=== PATIENT | female | born 1945 | race Caucasian/White ===

== ENCOUNTER 2017-05-19 06:16 | Inpatient (IN) | payer OTHER ==
[~2017-05-19] VITALS: Ht 158.8 cm; Wt 95.1 kg
[~2017-05-19 06:16] MED LIST: ASCORBIC ACID500 M3 PO; ASPIRIN81 M1 PO; AZITHROMYCIN500 MG PO; Ascorbic Acid,Ester- PO; Aspirin E.C. PO; BENADRYL25 MG PO; BREO ELLIPTA I1 EACH IH; CALCIUM 250+D1 EACH PO; CARDIZEM CD120 MG PO; CARDIZEM CD180 MG PO; COMPLETE SENIO1 EACH PO; COUMADIN2.5 MG PO; COUMADIN5 MG PO; CYANOCOBALAM1000 MCG PO; CYMBALTA60 MG PO; Colace PO; Coumadin,Jantoven PO; DULOXETINE HCL60 MG PO; EPIPEN ADU0.3 MG/0.3 IM; FAMOTIDINE20 MG PO; FEOSOL325 MG PO; FISH OIL 1,0001 EAC7 PO; FISH OIL 1,2001 EAC4 PO; FUROSEMIDE40 MG PO; Feosol PO; HYDROCODONE-CH473 ML PO; HYOSCYAMINE0.375 MG PO; LANSOPRAZOLE30 MG PO; LEVOFLOXACIN750 MG PO; LOW DOSE ASPIRI81 M1 PO; Lovenox SC; METOPROLOL SUC100 MG PO; MUCINEX1200 MG PO; MULTI-VITAMIN1 EAC4 PO; POLYMYXIN B-TMP10 ML RIGHT EYE; PRAVASTATIN SOD80 MG PO; PREDNISONE10 MG PO; PREDNISONE5 MG PO; PREVACID30 MG PO; Prevacid PO; SIMVASTATIN40 MG PO; ST. JOSEPH ASPI81 MG PO; SULFAZINE500 MG PO; SYNTHROID25 MCG PO; Senokot S,Pericolace PO; TOPROL XL100 MG PO; TOPROL XL50 MG PO; Toprol XL PO; VENTOLIN HFA18 GM IH; VITAMIN D31000 UNI2 PO; Vicodin,Norco 5/325 PO; WARFARIN SODIUM2 MG PO; WARFARIN SODIUM5 MG PO; Zocor PO; celeXA PO; citalopram; metoprolol succinate
[2017-05-19 07:34] LABS: EOSINOPHIL (%) 0.8 % (0-5); EOSINOPHIL COUNT 0.2 K/uL (0-0.3); HEMATOCRIT 44.4 % (36.0-46.0); IMMATURE GRANULOCYTE (%) 1.7 % (0.0-0.7); IMMATURE GRANULOCYTE COUNT 0.3 K/uL; INSTRUMENT ABS NEUTROPHIL CT 14.6 K/uL; MCH 28.5 PG (29.0-34.0); MCHC 32.7 G/DL (30.0-36.0); MCV 87.4 FL (83-99); MEAN PLAT.VOLUME 8.3 uM^3 (9.5-12.4); MONOCYTE (%) 6.8 % (3-12); MONOCYTE COUNT 1.3 K/uL (0-0.8); NEUTROPHIL COUNT 14.6 K/uL (1.8-6.4); PLATELET COUNT 513 K/uL (156-360); RBC DIS.WIDTH-CV 15.7 % (11.8-14.6); RBC DIS.WIDTH-SD 50.5 % (39-53); RED BLOOD COUNT 5.08 M/uL (3.80-5.20); WHITE BLOOD COUNT 19.5 K/uL (4.1-10.2)
[2017-05-19 07:41] LABS: INTER. NORMALIZED RATIO 2.1; PROTHROMBIN TIME 23.9 SEC (10.2-12.9)
[2017-05-19 07:44] LABS: PTT 31.1 SEC (25-37)
[2017-05-19 07:53] LABS: CHLORIDE 107 mEq/L (99-109); POTASSIUM 3.8 mEq/L (3.7-5.4); SODIUM 140 mEq/L (136-147)
[2017-05-19 07:55] LABS: GLUCOSE 138 mg/dL (70-99); TROP-I INTERPRETATION NEGATIVE; TROPONIN-I 0.13 ng/mL (0.0-0.30)
[2017-05-19 07:56] LABS: ANION GAP 11 MEQ/L (2-14)
[2017-05-19 07:59] LABS: GFR ESTIMATE (CALCULATED) 36 mL/min/; UREA NITROGEN (BUN) 45 mg/dL (9-23)
[2017-05-19 08:12] LABS: INFLUENZA A VIRAL ANTIGEN NEGATIVE; INFLUENZA B VIRAL ANTIGEN NEGATIVE
[2017-05-19] MEDS ORDERED: ZOFRAN4 MG PO (09:43)
[2017-05-19] MEDS ORDERED: NITROSTAT0.4 MG SL (10:56)
[2017-05-19] MEDS ORDERED: TRAMADOL HCL50 MG PO (10:57)
[2017-05-19] MEDS ORDERED: MIRALAX17 GM PO (10:58)
[2017-05-19] MEDS ORDERED: EPIPEN ADU0.3 MG/0.3 IM (11:01)
[2017-05-19] MEDS ORDERED: DOXYCYCLINE MO100 M1 PO (11:05)
[2017-05-19] MEDS ORDERED: BENZONATATE100 MG PO (11:05)
[2017-05-19 12:25] VITALS: BP 118/68
[2017-05-19 14:11] LABS: TROP-I INTERPRETATION NEGATIVE; TROPONIN-I 0.11 ng/mL (0.0-0.30)
[2017-05-19 15:14] VITALS: BP 127/59
[2017-05-19 20:33] VITALS: BP 120/65
[2017-05-19 20:33] LABS: TROP-I INTERPRETATION NEGATIVE
[2017-05-20] VITALS (7 sets, daily range): BP systolic 98–156; BP diastolic 56–72
[2017-05-20 06:07] LABS: HEMATOCRIT 38.5 % (36.0-46.0); MCHC 31.4 G/DL (30.0-36.0); MEAN PLAT.VOLUME 8.7 uM^3 (9.5-12.4); PLATELET COUNT 416 K/uL (156-360); RBC DIS.WIDTH-SD 54.4 % (39-53); RED BLOOD COUNT 4.17 M/uL (3.80-5.20); WHITE BLOOD COUNT 10.3 K/uL (4.1-10.2)
[2017-05-20 06:08] LABS: MCV 92.3 FL (83-99)
[2017-05-20 06:26] LABS: ANION GAP 8 MEQ/L (2-14); CHLORIDE 107 MEQ/L (99-109); GFR ESTIMATE (CALCULATED) 47 mL/min/; GLUCOSE 128 mg/dL (70-99); POTASSIUM 4.4 MEQ/L (3.7-5.4); SAMPLE HEMOLYSIS CHECK 0; SAMPLE ICTERIC CHECK 0; SAMPLE LIPEMIA CHECK 0; SODIUM 138 MEQ/L (136-147); UREA NITROGEN (BUN) 30 mg/dL (9-23)
[2017-05-20 06:29] LABS: INTER. NORMALIZED RATIO 2.5; PROTHROMBIN TIME 28.2 SEC (10.2-12.9)
[2017-05-21 04:07] VITALS: BP 144/72
[2017-05-21 06:31] LABS: PROTHROMBIN TIME 22.1 SEC (10.2-12.9)
[2017-05-21 07:13] LABS: HEMATOCRIT 42.7 % (36.0-46.0); MCH 28.6 PG (29.0-34.0); MCHC 30.9 G/DL (30.0-36.0); MCV 92.4 FL (83-99); MEAN PLAT.VOLUME 8.9 uM^3 (9.5-12.4); PLATELET COUNT 454 K/uL (156-360); RBC DIS.WIDTH-CV 15.6 % (11.8-14.6); RBC DIS.WIDTH-SD 53.2 % (39-53); RED BLOOD COUNT 4.62 M/uL (3.80-5.20); WHITE BLOOD COUNT 12.4 K/uL (4.1-10.2)
[2017-05-21 07:25] LABS: ANION GAP 8 MEQ/L (2-14); CHLORIDE 106 MEQ/L (99-109); GFR ESTIMATE (CALCULATED) 52 mL/min/; GLUCOSE 116 mg/dL (70-99); POTASSIUM 4.8 MEQ/L (3.7-5.4); SAMPLE HEMOLYSIS CHECK 0; SAMPLE ICTERIC CHECK 0; SAMPLE LIPEMIA CHECK 0; SODIUM 139 MEQ/L (136-147); UREA NITROGEN (BUN) 23 mg/dL (9-23)
[2017-05-21 07:31] VITALS: BP 119/65
[2017-05-21 10:43] VITALS: BP 116/59
[2017-05-21] MEDS ORDERED: MUCINEX600 MG PO (12:36)
[2017-05-21] MEDS ORDERED: ACIDOPHILUS LA1 EACH PO (12:37)
[2017-05-21] MEDS ORDERED: LEVAQUIN750 MG PO (12:38)
[2017-05-21 15:40] VITALS: BP 123/60
== END 2017-05-21 17:08 | disposition home or self-care (01) | DRG 202 ==
LOC: EME → EDBD 06:16 → EME 06:16 → EDOF 09:27 → 5WEST 09:27 → EDOF 09:27 → ENRESERV 09:32 → 5WEST 12:17 → ENRESERV 05-20 15:17 → CANRESERV 05-20 23:12 → ENRESERV 05-20 23:12 → 5WEST 05-21 17:08
PROVIDERS: Emergency Medicine; Internal Medicine; Nurse Practitioner Adult Health
DX: J20.9 Acute bronchitis, unspecified (principal); R00.0 Tachycardia, unspecified; Z96.653 Presence of artificial knee joint, bilateral; K50.90 Crohn's disease, unspecified, without complications; K21.9 Gastro-esophageal reflux disease without esophagitis; I48.91 Unspecified atrial fibrillation; I25.10 Atherosclerotic heart disease of native coronary artery without angina pectoris; I10 Essential (primary) hypertension; E78.5 Hyperlipidemia, unspecified; D68.51 Activated protein C resistance; K46.9 Unspecified abdominal hernia without obstruction or gangrene; F32.9 Major depressive disorder, single episode, unspecified; E86.0 Dehydration; D68.2 Hereditary deficiency of other clotting factors; I25.2 Old myocardial infarction; Z95.5 Presence of coronary angioplasty implant and graft; Z80.6 Family history of leukemia; Z79.82 Long term (current) use of aspirin; Z79.01 Long term (current) use of anticoagulants; E66.9 Obesity, unspecified; Z68.37 Body mass index [BMI] 37.0-37.9, adult
CPT/HCPCS: 71010; 80048; 84484; 85025; 85027; 85610; 85730; 87070; 87205; 87502; 87651 90; 93005; 94640; 94760; 99202; 99281; 99285; G0378; J1956; J2405; J7030; S0028

== ENCOUNTER 2017-08-18 11:53 | Inpatient (IN) | payer OTHER ==
[~2017-08-18] VITALS: Ht 160 cm; Wt 107.2 kg
[~2017-08-18 11:53] MED LIST changes: +ACIDOPHILUS LA1 EACH PO; +BENZONATATE100 MG PO; +DOXYCYCLINE MO100 M1 PO; +LEVAQUIN750 MG PO; +MIRALAX17 GM PO; +MUCINEX600 MG PO; +NITROSTAT0.4 MG SL; +TRAMADOL HCL50 MG PO; +ZOFRAN4 MG PO
[2017-08-18 13:26] LABS: HEMATOCRIT 36.7 % (36.0-46.0); MCH 29.3 PG (29.0-34.0); MCHC 32.7 G/DL (30.0-36.0); MCV 89.7 FL (83-99); PLATELET COUNT 363 K/uL (156-360); RBC DIS.WIDTH-CV 14.4 % (11.8-14.6); RBC DIS.WIDTH-SD 47.4 % (39-53); RED BLOOD COUNT 4.09 M/uL (3.80-5.20); WHITE BLOOD COUNT 14.6 K/uL (4.1-10.2)
[2017-08-18 13:40] LABS: CHLORIDE 104 mEq/L (99-109); POTASSIUM 4.1 mEq/L (3.7-5.4); SODIUM 136 mEq/L (136-147)
[2017-08-18 13:41] LABS: GLUCOSE 174 mg/dL (70-99)
[2017-08-18 13:45] LABS: CREATININE 0.9 mg/dL (0.6-1.3); GFR ESTIMATE (CALCULATED) > 59 mL/min/
[2017-08-18 13:46] LABS: UREA NITROGEN (BUN) 18 mg/dL (9-23)
[2017-08-18 15:45] LABS: INTER. NORMALIZED RATIO 2.8
[2017-08-18] MEDS ORDERED: PREDNISONE20 MG PO (16:06)
[2017-08-18] MEDS ORDERED: FUROSEMIDE40 MG PO (16:07)
[2017-08-18] MEDS ORDERED: CARDIZEM CD,CA180 MG PO (16:09)
[2017-08-18] MEDS ORDERED: METOPROLOL SUC100 MG PO (16:09)
[2017-08-18] MEDS ORDERED: K-DUR20 MEQ PO (16:09)
[2017-08-18] MEDS ORDERED: LEVOTHYROXINE25 MCG PO (16:10)
[2017-08-18] MEDS ORDERED: PROAIR HFA8.5 GM IH (16:11)
[2017-08-18 17:40] LABS: APPEARANCE CLEAR ((CLEAR)); BILIRUBIN NEGATIVE; BLOOD SMALL; COLOR YELLOW ((YELLOW)); GLUCOSE (STRIP) NEGATIVE; KETONES NEGATIVE; LEUKOCYTES MODERATE; NITRITE NEGATIVE; PROTEIN (STRIP) NEGATIVE; SPECIFIC GRAVITY 1.006 (1.000-1.030); UROBILINOGEN 0.2 MG/DL (0.2-1.0)
[2017-08-18 17:47] LABS: BACTERIA RARE /HPF; EPITHELIAL CELLS 1+ /HPF; MUCUS TRACE /LPF; RED BLOOD CELLS 0-5 /HPF (0-5); UCUL ADDED? NO; WHITE BLOOD CELLS 0-5 /HPF (0-5)
[2017-08-18 22:11] VITALS: BP 164/70
[2017-08-19 00:16] VITALS: BP 147/65
[2017-08-19 04:10] VITALS: BP 152/69
[2017-08-19 06:49] LABS: BASOPHIL (%) 0.5 % (0-1); BASOPHIL COUNT 0.1 K/uL (0-0.1); EOSINOPHIL (%) 0 % (0-5); HEMOGLOBIN 11.7 G/DL (11.9-15.5); IMMATURE GRANULOCYTE (%) 0.8 % (0.0-0.7); LYMPHOCYTE (%) 9.1 % (15-42); LYMPHOCYTE COUNT 0.9 K/uL (1.0-2.8); MCH 29.4 PG (29.0-34.0); MCHC 32.5 G/DL (30.0-36.0); MCV 90.5 FL (83-99); MONOCYTE (%) 6.1 % (3-12); MONOCYTE COUNT 0.6 K/uL (0-0.8); NEUTROPHIL (%) 83.5 % (45-76); PLATELET COUNT 375 K/uL (156-360); RBC DIS.WIDTH-CV 14.7 % (11.8-14.6); RBC DIS.WIDTH-SD 48.8 % (39-53); RED BLOOD COUNT 3.98 M/uL (3.80-5.20); WHITE BLOOD COUNT 9.6 K/uL (4.1-10.2)
[2017-08-19 06:59] LABS: INTER. NORMALIZED RATIO 2.4
[2017-08-19 07:18] LABS: CHLORIDE 105 MEQ/L (99-109); CREATININE 0.9 MG/DL (0.6-1.3); GFR ESTIMATE (CALCULATED) > 59 mL/min/; SODIUM 140 MEQ/L (136-147); UREA NITROGEN (BUN) 21 mg/dL (9-23)
[2017-08-19 07:24] LABS: GLUCOSE 99 mg/dL (70-99)
[2017-08-19 12:04] VITALS: BP 157/70
[2017-08-19 16:57] VITALS: BP 162/79
[2017-08-19 19:45] VITALS: BP 150/92
[2017-08-20 00:21] VITALS: BP 143/89
[2017-08-20 04:15] VITALS: BP 149/75
[2017-08-20 07:22] LABS: INTER. NORMALIZED RATIO 2.1
[2017-08-20 09:15] VITALS: BP 158/77
[2017-08-20 12:42] VITALS: BP 144/71
[2017-08-20 16:17] VITALS: BP 153/70
[2017-08-20 20:21] VITALS: BP 162/82
[2017-08-21 00:31] VITALS: BP 124/60
[2017-08-21 04:09] VITALS: BP 126/61
[2017-08-21 07:15] LABS: INTER. NORMALIZED RATIO 2.2
[2017-08-21 08:12] VITALS: BP 108/58
[2017-08-21 12:01] VITALS: BP 143/65
[2017-08-21 16:17] VITALS: BP 130/65
[2017-08-21 20:56] VITALS: BP 147/66
[2017-08-22] VITALS (7 sets, daily range): BP systolic 120–143; BP diastolic 60–83
[2017-08-22 07:25] LABS: HEMATOCRIT 31.8 % (36.0-46.0); HEMOGLOBIN 10.1 G/DL (11.9-15.5); MCH 28.6 PG (29.0-34.0); MCHC 31.8 G/DL (30.0-36.0); MCV 90.1 FL (83-99); PLATELET COUNT 337 K/uL (156-360); RBC DIS.WIDTH-CV 14.8 % (11.8-14.6); RBC DIS.WIDTH-SD 49.7 % (39-53); RED BLOOD COUNT 3.53 M/uL (3.80-5.20); WHITE BLOOD COUNT 9.1 K/uL (4.1-10.2)
[2017-08-22 07:48] LABS: INTER. NORMALIZED RATIO 2.4
[2017-08-22 07:58] LABS: CHLORIDE 106 MEQ/L (99-109); GFR ESTIMATE (CALCULATED) 58 mL/min/; GLUCOSE 140 mg/dL (70-99); SODIUM 140 MEQ/L (136-147); UREA NITROGEN (BUN) 20 mg/dL (9-23)
[2017-08-22 08:10] LABS: POTASSIUM 4.9 MEQ/L (3.7-5.4)
[2017-08-23 00:49] VITALS: BP 159/71
[2017-08-23 04:59] VITALS: BP 152/67
[2017-08-23 07:14] LABS: INTER. NORMALIZED RATIO 2.5
[2017-08-23 07:29] VITALS: BP 151/72
[2017-08-23] MEDS ORDERED: AUGMENTIN875 MG PO (07:46)
[2017-08-23] MEDS ORDERED: FLONASE16 G1 BOTH NARES (10:16)
== END 2017-08-23 14:40 | disposition home health service (06) | DRG 871 ==
LOC: EME 11:53 → 5SOUTH 15:18 → EDOF 15:18 → ENRESERV 15:20 → 5SOUTH 21:35 → ENPENDDIS 08-23 10:56 → 5SOUTH 08-23 14:40
PROVIDERS: Internal Medicine; Physician Assistant Medical
DX: A41.9 Sepsis, unspecified organism (principal); J18.9 Pneumonia, unspecified organism; D68.51 Activated protein C resistance; I10 Essential (primary) hypertension; E78.5 Hyperlipidemia, unspecified; I25.10 Atherosclerotic heart disease of native coronary artery without angina pectoris; I48.91 Unspecified atrial fibrillation; K21.9 Gastro-esophageal reflux disease without esophagitis; F32.9 Major depressive disorder, single episode, unspecified; K50.90 Crohn's disease, unspecified, without complications; Y95 Nosocomial condition; Z96.653 Presence of artificial knee joint, bilateral; I25.2 Old myocardial infarction; Z95.5 Presence of coronary angioplasty implant and graft; Z79.01 Long term (current) use of anticoagulants; Z79.82 Long term (current) use of aspirin; Z86.718 Personal history of other venous thrombosis and embolism
CPT/HCPCS: 71046; 80048; 80202; 81003; 83605; 85025; 85027; 85048; 85610; 87040; 87070; 87205; 87449; 87502; 87641; 93005; 94640; 94640 76; 94799; 99202; 99281; 99285; J0456; J0696; J2543; J3370; J7030; J7050; J7512

== ENCOUNTER 2017-10-26 21:15 | Inpatient (IN) | payer OTHER ==
[~2017-10-26] VITALS: Ht 157.5 cm; Wt 98.3 kg
[~2017-10-26 21:15] MED LIST changes: +AUGMENTIN875 MG PO; +BREO ELLIPTA 21 EACH IH; -BREO ELLIPTA I1 EACH IH; +CARDIZEM CD,CA180 MG PO; +COUMADIN4 MG PO; +FLONASE16 G1 BOTH NARES; +K-DUR20 MEQ PO; +LEVOTHYROXINE25 MCG PO; +PREDNISONE20 MG PO; +PROAIR HFA8.5 GM IH; -WARFARIN SODIUM2 MG PO
[2017-10-26 21:59] LABS: HEMATOCRIT 35.7 % (36.0-46.0); HEMOGLOBIN 11.7 G/DL (11.9-15.5); MCH 29.2 PG (29.0-34.0); MCHC 32.8 G/DL (30.0-36.0); PLATELET COUNT 439 K/uL (156-360); RBC DIS.WIDTH-CV 14.6 % (11.8-14.6); RBC DIS.WIDTH-SD 47.6 % (39-53); RED BLOOD COUNT 4.01 M/uL (3.80-5.20); WHITE BLOOD COUNT 10.9 K/uL (4.1-10.2)
[2017-10-26 22:20] LABS: CHLORIDE 102 mEq/L (99-109); POTASSIUM 4.3 mEq/L (3.7-5.4); SODIUM 136 mEq/L (136-147)
[2017-10-26 22:22] LABS: GLUCOSE 185 mg/dL (70-99)
[2017-10-26 22:24] LABS: TROP-I INTERPRETATION NEGATIVE; TROPONIN-I 0.02 ng/mL (0.0-0.30)
[2017-10-26 22:25] LABS: CREATININE 1.2 mg/dL (0.6-1.3); GFR ESTIMATE (CALCULATED) 47 mL/min/
[2017-10-26 22:26] LABS: UREA NITROGEN (BUN) 24 mg/dL (9-23)
[2017-10-27 07:02] LABS: INTER. NORMALIZED RATIO 2.3
[2017-10-27 07:04] LABS: PTT 44.6 SEC (25-37)
[2017-10-27] MEDS ORDERED: ALBUTEROL2.5 MG/3 M IH ×2 (08:22)
[2017-10-27] MEDS ORDERED: ANUCORT-HC25 MG PR (08:22)
[2017-10-27 10:24] LABS: TROP-I INTERPRETATION NEGATIVE; TROPONIN-I 0.01 ng/mL (0.0-0.30)
[2017-10-27 16:47] VITALS: BP 138/85
[2017-10-27 21:17] VITALS: BP 125/73
[2017-10-27 22:18] VITALS: BP 126/70
[2017-10-27 22:30] VITALS: BP 98/60
[2017-10-28 00:24] VITALS: BP 110/61
[2017-10-28 04:19] VITALS: BP 112/57
[2017-10-28 05:53] LABS: HEMATOCRIT 35.7 % (36.0-46.0); MCH 28.1 PG (29.0-34.0); MCHC 30.8 G/DL (30.0-36.0); MCV 91.3 FL (83-99); PLATELET COUNT 427 K/uL (156-360); RBC DIS.WIDTH-CV 14.7 % (11.8-14.6); RED BLOOD COUNT 3.91 M/uL (3.80-5.20); WHITE BLOOD COUNT 8.5 K/uL (4.1-10.2)
[2017-10-28 06:09] LABS: CHLORIDE 105 MEQ/L (99-109); GFR ESTIMATE (CALCULATED) 58 mL/min/; GLUCOSE 154 mg/dL (70-99); POTASSIUM 4.6 MEQ/L (3.7-5.4); SODIUM 139 MEQ/L (136-147); UREA NITROGEN (BUN) 24 mg/dL (9-23)
[2017-10-28 07:38] LABS: INTER. NORMALIZED RATIO 1.8
[2017-10-28 07:48] VITALS: BP 124/67
[2017-10-28 11:48] VITALS: BP 121/69
[2017-10-28 19:03] VITALS: BP 125/67
[2017-10-29] VITALS (8 sets, daily range): BP systolic 106–144; BP diastolic 55–93
[2017-10-29 05:41] LABS: BASOPHIL (%) 0.9 % (0-1); BASOPHIL COUNT 0.1 K/uL (0-0.1); EOSINOPHIL (%) 5.1 % (0-5); EOSINOPHIL COUNT 0.4 K/uL (0-0.3); HEMATOCRIT 35.1 % (36.0-46.0); HEMOGLOBIN 10.9 G/DL (11.9-15.5); IMMATURE GRANULOCYTE (%) 0.7 % (0.0-0.7); LYMPHOCYTE (%) 16.6 % (15-42); LYMPHOCYTE COUNT 1.4 K/uL (1.0-2.8); MCH 28.1 PG (29.0-34.0); MCHC 31.1 G/DL (30.0-36.0); MCV 90.5 FL (83-99); MONOCYTE (%) 7.9 % (3-12); MONOCYTE COUNT 0.7 K/uL (0-0.8); NEUTROPHIL (%) 68.8 % (45-76); PLATELET COUNT 428 K/uL (156-360); RBC DIS.WIDTH-CV 14.6 % (11.8-14.6); RBC DIS.WIDTH-SD 48.7 % (39-53); RED BLOOD COUNT 3.88 M/uL (3.80-5.20); WHITE BLOOD COUNT 8.7 K/uL (4.1-10.2)
[2017-10-29 05:52] LABS: INTER. NORMALIZED RATIO 1.9
[2017-10-29 06:06] LABS: CHLORIDE 105 MEQ/L (99-109); GFR ESTIMATE (CALCULATED) 58 mL/min/; GLUCOSE 134 mg/dL (70-99); POTASSIUM 4.6 MEQ/L (3.7-5.4); SODIUM 139 MEQ/L (136-147); UREA NITROGEN (BUN) 23 mg/dL (9-23)
[2017-10-29 15:32] LABS: TROP-I INTERPRETATION NEGATIVE; TROPONIN-I 0.02 ng/mL (0.0-0.30)
[2017-10-29 15:34] LABS: CHLORIDE 103 MEQ/L (99-109); CREATININE 0.9 MG/DL (0.6-1.3); GFR ESTIMATE (CALCULATED) > 59 mL/min/; GLUCOSE 154 mg/dL (70-99); POTASSIUM 4.5 MEQ/L (3.7-5.4); SODIUM 138 MEQ/L (136-147); UREA NITROGEN (BUN) 21 mg/dL (9-23)
[2017-10-30 01:02] LABS: PTT 39.8 SEC (25-37)
[2017-10-30 04:00] VITALS: BP 90/71
[2017-10-30 06:02] LABS: INTER. NORMALIZED RATIO 1.9
[2017-10-30 06:03] LABS: BASOPHIL (%) 0.7 % (0-1); BASOPHIL COUNT 0.1 K/uL (0-0.1); EOSINOPHIL (%) 5.3 % (0-5); EOSINOPHIL COUNT 0.5 K/uL (0-0.3); HEMATOCRIT 37.7 % (36.0-46.0); HEMOGLOBIN 11.5 G/DL (11.9-15.5); IMMATURE GRANULOCYTE (%) 0.5 % (0.0-0.7); LYMPHOCYTE (%) 15.8 % (15-42); LYMPHOCYTE COUNT 1.5 K/uL (1.0-2.8); MCH 27.8 PG (29.0-34.0); MCHC 30.5 G/DL (30.0-36.0); MCV 91.3 FL (83-99); MONOCYTE (%) 7.8 % (3-12); MONOCYTE COUNT 0.7 K/uL (0-0.8); NEUTROPHIL (%) 69.9 % (45-76); NEUTROPHIL COUNT 6.6 K/uL (1.8-6.4); PLATELET COUNT 459 K/uL (156-360); RBC DIS.WIDTH-CV 14.5 % (11.8-14.6); RBC DIS.WIDTH-SD 48.9 % (39-53); RED BLOOD COUNT 4.13 M/uL (3.80-5.20); WHITE BLOOD COUNT 9.4 K/uL (4.1-10.2)
[2017-10-30 06:30] LABS: CHLORIDE 106 MEQ/L (99-109); GFR ESTIMATE (CALCULATED) 58 mL/min/; GLUCOSE 158 mg/dL (70-99); POTASSIUM 5.2 MEQ/L (3.7-5.4); SODIUM 142 MEQ/L (136-147); UREA NITROGEN (BUN) 27 mg/dL (9-23)
[2017-10-30 07:21] VITALS: BP 107/65
[2017-10-30 11:09] VITALS: BP 108/66
[2017-10-30 11:52] LABS: INTER. NORMALIZED RATIO 2.1
[2017-10-30 15:32] VITALS: BP 118/65
[2017-10-30 20:00] VITALS: BP 129/62
[2017-10-31] VITALS: BP 130/60
[2017-10-31 05:22] LABS: BASOPHIL COUNT 0.1 K/uL (0-0.1); EOSINOPHIL (%) 5.3 % (0-5); EOSINOPHIL COUNT 0.5 K/uL (0-0.3); HEMATOCRIT 36.3 % (36.0-46.0); HEMOGLOBIN 11.3 G/DL (11.9-15.5); IMMATURE GRANULOCYTE (%) 0.6 % (0.0-0.7); LYMPHOCYTE (%) 15.9 % (15-42); LYMPHOCYTE COUNT 1.5 K/uL (1.0-2.8); MCH 28.1 PG (29.0-34.0); MCHC 31.1 G/DL (30.0-36.0); MCV 90.3 FL (83-99); MONOCYTE COUNT 0.7 K/uL (0-0.8); NEUTROPHIL (%) 70.2 % (45-76); NEUTROPHIL COUNT 6.5 K/uL (1.8-6.4); PLATELET COUNT 450 K/uL (156-360); RBC DIS.WIDTH-CV 14.5 % (11.8-14.6); RBC DIS.WIDTH-SD 48.3 % (39-53); RED BLOOD COUNT 4.02 M/uL (3.80-5.20); WHITE BLOOD COUNT 9.3 K/uL (4.1-10.2)
[2017-10-31 05:28] LABS: INTER. NORMALIZED RATIO 1.4
[2017-10-31 05:37] LABS: PTT 35.9 SEC (25-37)
[2017-10-31 05:44] VITALS: BP 140/84
[2017-10-31 05:47] LABS: CHLORIDE 106 MEQ/L (99-109); CREATININE 0.9 MG/DL (0.6-1.3); GFR ESTIMATE (CALCULATED) > 59 mL/min/; GLUCOSE 147 mg/dL (70-99); POTASSIUM 4.5 MEQ/L (3.7-5.4); SODIUM 140 MEQ/L (136-147); UREA NITROGEN (BUN) 24 mg/dL (9-23)
[2017-10-31 07:33] VITALS: BP 154/90
[2017-10-31 11:50] VITALS: BP 131/74
[2017-10-31 15:30] VITALS: BP 130/69
[2017-10-31 20:30] VITALS: BP 136/74
[2017-11-01] VITALS (7 sets, daily range): BP systolic 116–145; BP diastolic 72–91
[2017-11-01 06:26] LABS: INTER. NORMALIZED RATIO 1.2
[2017-11-02 04:30] VITALS: BP 142/81
[2017-11-02 05:54] LABS: INTER. NORMALIZED RATIO 1.1
[2017-11-02 05:57] LABS: HEMATOCRIT 38.3 % (36.0-46.0); MCH 28.2 PG (29.0-34.0); MCHC 31.3 G/DL (30.0-36.0); MCV 89.9 FL (83-99); PLATELET COUNT 472 K/uL (156-360); RBC DIS.WIDTH-CV 14.7 % (11.8-14.6); RBC DIS.WIDTH-SD 48.1 % (39-53); RED BLOOD COUNT 4.26 M/uL (3.80-5.20); WHITE BLOOD COUNT 10.7 K/uL (4.1-10.2)
[2017-11-02 06:13] LABS: PTT 38.4 SEC (25-37)
[2017-11-02 06:24] LABS: CHLORIDE 107 MEQ/L (99-109); CREATININE 1.1 MG/DL (0.6-1.3); GFR ESTIMATE (CALCULATED) 52 mL/min/; GLUCOSE 144 mg/dL (70-99); POTASSIUM 4.5 MEQ/L (3.7-5.4); SODIUM 139 MEQ/L (136-147); UREA NITROGEN (BUN) 27 mg/dL (9-23)
[2017-11-02 07:10] VITALS: BP 172/81
[2017-11-02 12:35] VITALS: BP 130/76
[2017-11-02 15:45] VITALS: BP 104/59
[2017-11-02 19:35] VITALS: BP 99/60
[2017-11-03 00:05] VITALS: BP 109/70
[2017-11-03 03:15] VITALS: BP 94/59
[2017-11-03 05:28] LABS: INTER. NORMALIZED RATIO 1.2
[2017-11-03 07:30] VITALS: BP 90/53
[2017-11-03 11:28] VITALS: BP 95/54
[2017-11-03 15:26] VITALS: BP 131/59
[2017-11-03] MEDS ORDERED: LOPRESSOR50 MG PO (15:35)
== END 2017-11-03 18:49 | disposition home or self-care (01) | DRG 243 ==
LOC: EME 21:15 → EDOF 10-27 10:07 → 5WEST 10-27 10:07 → EDOF 10-27 10:07 → ENRESERV 10-27 10:23 → 5WEST 10-27 16:20 → 4EAST 10-29 14:29 → 5WEST 10-29 14:29 → ENRESERV 10-29 14:48 → 4EAST 10-29 15:30
PROVIDERS: Emergency Medicine; Internal Medicine; Internal Medicine Cardiovascular Disease; Nurse Practitioner Adult Health; Thoracic Surgery (Cardiothoracic Vascular Surgery)
DX: I49.5 Sick sinus syndrome (principal); I48.0 Paroxysmal atrial fibrillation; N17.9 Acute kidney failure, unspecified; T50.1X5A Adverse effect of loop [high-ceiling] diuretics, initial encounter; E86.0 Dehydration; R55 Syncope and collapse; K52.9 Noninfective gastroenteritis and colitis, unspecified; K50.90 Crohn's disease, unspecified, without complications; I11.9 Hypertensive heart disease without heart failure; D68.2 Hereditary deficiency of other clotting factors; D68.51 Activated protein C resistance; Z68.41 Body mass index [BMI] 40.0-44.9, adult; E66.9 Obesity, unspecified; D64.9 Anemia, unspecified; I25.10 Atherosclerotic heart disease of native coronary artery without angina pectoris; E06.3 Autoimmune thyroiditis; E78.5 Hyperlipidemia, unspecified; F32.9 Major depressive disorder, single episode, unspecified; K21.9 Gastro-esophageal reflux disease without esophagitis; G43.909 Migraine, unspecified, not intractable, without status migrainosus; M54.9 Dorsalgia, unspecified; F41.9 Anxiety disorder, unspecified; H91.91 Unspecified hearing loss, right ear; I25.2 Old myocardial infarction; M19.90 Unspecified osteoarthritis, unspecified site; Z79.82 Long term (current) use of aspirin; Z86.718 Personal history of other venous thrombosis and embolism; Z95.5 Presence of coronary angioplasty implant and graft; Z79.01 Long term (current) use of anticoagulants; Z85.42 Personal history of malignant neoplasm of other parts of uterus; Z90.710 Acquired absence of both cervix and uterus; Z96.653 Presence of artificial knee joint, bilateral
CPT/HCPCS: 71045; 71046; 71275; 80048; 80048 91; 83735; 84443; 84484; 85025; 85027; 85610; 85730; 93005; 93880; 94640; 94640 76; 94760; 94799; 99202; 99281; 99285; C1892; C1894; C1898; G0378; J0690; J2250; J2405; J3010; J3430; J7030; J7050; S0020

== ENCOUNTER 2017-11-12 15:30 | Emergency (ER) | payer OTHER ==
[~2017-11-12] VITALS: Ht 157.5 cm; Wt 102.1 kg
[~2017-11-12 15:30] MED LIST changes: +ALBUTEROL2.5 MG/3 M IH; +ANUCORT-HC25 MG PR; +LOPRESSOR50 MG PO
[2017-11-12 16:18] LABS: HEMATOCRIT 32.5 % (36.0-46.0); HEMOGLOBIN 10.3 G/DL (11.9-15.5); MCH 28.7 PG (29.0-34.0); MCHC 31.7 G/DL (30.0-36.0); MCV 90.5 FL (83-99); PLATELET COUNT 333 K/uL (156-360); RBC DIS.WIDTH-CV 14.4 % (11.8-14.6); RBC DIS.WIDTH-SD 48.3 % (39-53); RED BLOOD COUNT 3.59 M/uL (3.80-5.20); WHITE BLOOD COUNT 12.1 K/uL (4.1-10.2)
[2017-11-12 16:25] LABS: INTER. NORMALIZED RATIO 3.1
[2017-11-12 16:28] LABS: CHLORIDE 103 mEq/L (99-109); POTASSIUM 4.5 mEq/L (3.7-5.4); SODIUM 139 mEq/L (136-147)
[2017-11-12 16:29] LABS: GLUCOSE 94 mg/dL (70-99)
[2017-11-12 16:33] LABS: GFR ESTIMATE (CALCULATED) 58 mL/min/
[2017-11-12 16:34] LABS: UREA NITROGEN (BUN) 22 mg/dL (9-23)
[2017-11-12 16:40] LABS: TROP-I INTERPRETATION NEGATIVE; TROPONIN-I 0.03 ng/mL (0.0-0.30)
[2017-11-12] MEDS ORDERED: ZITHROMAX250 MG PO (17:02)
[2017-11-12 17:25] VITALS: BP 108/58
== END 2017-11-12 17:35 | disposition home or self-care (01) ==
LOC: EME 15:30
PROVIDERS: Emergency Medicine
DX: J20.9 Acute bronchitis, unspecified (principal); J02.9 Acute pharyngitis, unspecified; Z95.0 Presence of cardiac pacemaker; I25.2 Old myocardial infarction; K21.9 Gastro-esophageal reflux disease without esophagitis; I10 Essential (primary) hypertension; D68.2 Hereditary deficiency of other clotting factors; F41.9 Anxiety disorder, unspecified; F32.9 Major depressive disorder, single episode, unspecified; Z79.01 Long term (current) use of anticoagulants; Z79.82 Long term (current) use of aspirin; Z88.2 Allergy status to sulfonamides
CPT/HCPCS: 71046; 80048; 84484; 85027; 85610; 87502; 93005; 99281; 99284